=== PATIENT | male | born 1975 | race Caucasian/White ===

== ENCOUNTER → 2018-09-06 15:20 | Outpatient (CLI) | payer BC | END | disposition home or self-care (01) | LOC: D.MRI 15:20 | DX: M54.16 Radiculopathy, lumbar region (principal) ==

== ENCOUNTER → 2018-11-27 14:14 | Outpatient (CLI) | payer BC ==
[~2018-11-27 14:14] MED LIST: GABAPENTIN100 MG PO; OXYCONTIN15 MG PO; VOLTAREN75 MG PO
== END | disposition home or self-care (01) ==
LOC: D.MRI 14:14
PROVIDERS: ATTEND Anesthesiology
DX: M54.5 Low back pain (principal); M54.6 Pain in thoracic spine

== ENCOUNTER 2018-12-14 15:29 | Emergency (ER) | payer BC ==
[2018-12-14 15:48] VITALS: BMI 33.2
[2018-12-14] MEDS ORDERED: OXYCONTIN15 MG PO (15:51)
[2018-12-14] MEDS ORDERED: VOLTAREN75 MG PO (16:59)
[2018-12-14] MEDS ORDERED: GABAPENTIN100 MG PO (16:59)
[2018-12-14 17:48] VITALS: BP 142/84
== END 2018-12-14 17:48 | disposition home or self-care (01) ==
LOC: D.ER 15:29
DX: M54.16 Radiculopathy, lumbar region (principal); M51.26 Other intervertebral disc displacement, lumbar region; G89.29 Other chronic pain

== ENCOUNTER 2019-08-25 12:51 | Inpatient (IN) | payer MEDICARE ==
[~2019-08-25] VITALS: Ht 180.3 cm; Wt 104.1 kg
--- NOTE | 2019-08-25 11:25 | NUR ---
BLOOD TRANSFUSION CONSENT SIGNED BY PT. FIRST UNIT OF PR[facility] STARTED IN RIGHTINNER FOREARM. THAT SITE STARTED LEAKING AND WAS DC'D WITH CATH TIP INTACT. RESTARTED IN LEFT AC WITH 20G X 1 ATTEMPT AND BLOOD NOW INFUSING WELL. B/P RUNNING HIGH AND CONTACTED MIESHA RAMON APRN AND ORDERS RECEIVED. CLONIDINE 0.1 MG GIVEN PO.
[2019-08-25] MEDS ORDERED: ZANAFLEX4 MG PO (13:15)
[2019-08-25] MEDS ORDERED: ZANAFLEX6 MG PO (13:16)
[2019-08-25] MEDS ORDERED: VALIUM5 MG PO (13:17)
[2019-08-25 13:41] LABS: BASOPHILS 0.3 % (0-2); EOSINOPHILS 2.1 % (0-7); HEMATOCRIT 45.7 % (42.0-54.0); HEMOGLOBIN 15.5 g/dL (13.5-17.5); IMMATURE GRANULOCYTES 0.3 % (0-5); LYMPHOCYTES 31.7 % (15-50); MCH 32.1 pg (26.0-34.0); MCHC 33.9 g/dL (31.0-37.0); MCV 94.6 fL (80.0-100.0); MEAN PLATELET VOLUME 9.2 fL (7.4-10.4); MONOCYTES 6.9 % (2-11); NEUTROPHILS 58.7 % (40-80); PLATELET COUNT 273 10x3/uL (130-400); RBC 4.83 10x6/uL (4.20-6.10); RDW 13.7 % (11.5-14.5); WBC 8.6 10x3/uL (4.8-10.8)
[2019-08-25 13:59] LABS: CALC OSMOLALITY 285 mosm/kg (275-300); CARBON DIOXIDE 24.2 mmol/L (21.0-32.0); CHLORIDE - SERUM 105 mmol/L (98-107); CREATININE - SERUM 1.1 mg/dL (0.6-1.3); GLUCOSE 175 mg/dL (74-106); POTASSIUM - SERUM 4.3 mmol/L (3.5-5.1); SODIUM 141 mmol/L (136-145); UREA NITROGEN 15 mg/dL (7-18); eGFR NON AFRICAN AMERICAN 77 mL/min (90-120)
[2019-08-25 14:04] LABS: ALBUMIN 3.8 g/dL (3.4-5.0); ALKALINE PHOSPHATASE 74 U/L (46-116); ALT (SGPT) 33 U/L (10-68); BILIRUBIN - TOTAL 0.24 mg/dL (0.2-1.3); PROTEIN - SERUM 6.8 g/dL (6.4-8.2)
[2019-08-25 14:42] LABS: CKMB 1.8 U/L (0.0-3.6); CREATINE KINASE 185 UL (21-232)
[2019-08-25 15:17] VITALS: BMI 25.0
--- NOTE | 2019-08-25 15:30 | NUR ---
ASSESSMENT COMPLETE AAOX4 RESP UNLABORED SKIN W/D COLOR WNL TELEMETRY SR RATE 72 C/O OF CHEST PRESSURE PAGE IN TO MD FOR PAIN MANAGEMENT WILL CONTINUE TO MONITOR
[2019-08-25 16:00] VITALS: BP 128/76
[2019-08-25 16:36] VITALS: Ht 180.3 cm; Wt 104.1 kg
[2019-08-25 17:15] LABS: INR 0.9 (0.85-1.17); PROTIME 11.7 SECONDS (11.6-15.0)
[2019-08-25 20:05] LABS: CKMB 1.5 U/L (0.0-3.6); CREATINE KINASE 157 UL (21-232); TROPONIN-I < 0.017 ng/mL (0.000-0.060)
[2019-08-25 20:41] VITALS: BP 138/82
[2019-08-26 00:35] VITALS: BP 123/61
[2019-08-26 02:33] LABS: CKMB 1.2 U/L (0.0-3.6); CREATINE KINASE 132 UL (21-232); TROPONIN-I < 0.017 ng/mL (0.000-0.060)
[2019-08-26 04:00] VITALS: BP 103/58
[2019-08-26 04:54] LABS: BASOPHILS 0.5 % (0-2); EOSINOPHILS 2.2 % (0-7); HEMATOCRIT 46.3 % (42.0-54.0); HEMOGLOBIN 15.5 g/dL (13.5-17.5); IMMATURE GRANULOCYTES 0.2 % (0-5); LYMPHOCYTES 31.8 % (15-50); MCH 32.2 pg (26.0-34.0); MCHC 33.5 g/dL (31.0-37.0); MCV 96.3 fL (80.0-100.0); MEAN PLATELET VOLUME 9.2 fL (7.4-10.4); MONOCYTES 10.8 % (2-11); NEUTROPHILS 54.5 % (40-80); PLATELET COUNT 282 10x3/uL (130-400); RBC 4.81 10x6/uL (4.20-6.10); RDW 13.8 % (11.5-14.5); WBC 8.6 10x3/uL (4.8-10.8)
[2019-08-26 05:07] LABS: CALC OSMOLALITY 285 mosm/kg (275-300); CALCIUM 8.4 mg/dL (8.5-10.1); CARBON DIOXIDE 25.9 mmol/L (21.0-32.0); CHLORIDE - SERUM 107 mmol/L (98-107); CREATININE - SERUM 1.1 mg/dL (0.6-1.3); POTASSIUM - SERUM 4.7 mmol/L (3.5-5.1); SODIUM 142 mmol/L (136-145); UREA NITROGEN 18 mg/dL (7-18); eGFR NON AFRICAN AMERICAN 77 mL/min (90-120)
[2019-08-26 05:10] LABS: GLUCOSE 109 mg/dL (74-106)
--- NOTE | 2019-08-26 07:20 | NUR ---
ASSESSMENT DONE. DENIES NEEDS
[2019-08-26 11:01] VITALS: BP 121/72
--- NOTE | 2019-08-26 11:21 | NUR ---
I have reviewed this patient and I concur with the Shift Assessment completed by the Licensed Practical Nurse today this shift.
[2019-08-26 20:00] VITALS: BP 137/79
[2019-08-27] VITALS: BP 101/51
[2019-08-27 05:03] VITALS: BP 119/70
[2019-08-27 07:22] LABS: BASOPHILS 0.3 % (0-2); EOSINOPHILS 2.1 % (0-7); HEMATOCRIT 46.2 % (42.0-54.0); HEMOGLOBIN 15.3 g/dL (13.5-17.5); IMMATURE GRANULOCYTES 0.2 % (0-5); MCH 31.9 pg (26.0-34.0); MCHC 33.1 g/dL (31.0-37.0); MCV 96.5 fL (80.0-100.0); MEAN PLATELET VOLUME 9.3 fL (7.4-10.4); MONOCYTES 9.4 % (2-11); PLATELET COUNT 272 10x3/uL (130-400); RBC 4.79 10x6/uL (4.20-6.10); RDW 13.6 % (11.5-14.5); WBC 8.7 10x3/uL (4.8-10.8)
[2019-08-27 07:46] LABS: CALC OSMOLALITY 281 mosm/kg (275-300); CARBON DIOXIDE 26.4 mmol/L (21.0-32.0); CHLORIDE - SERUM 106 mmol/L (98-107); GLUCOSE 112 mg/dL (74-106); MAGNESIUM - SERUM 2.1 mg/dL (1.8-2.4); POTASSIUM - SERUM 4.5 mmol/L (3.5-5.1); SODIUM 141 mmol/L (136-145); UREA NITROGEN 13 mg/dL (7-18); eGFR NON AFRICAN AMERICAN 86 mL/min (90-120)
[2019-08-27 08:00] VITALS: BP 138/90
[2019-08-27 12:23] VITALS: BP 134/73
--- NOTE | 2019-08-27 13:10 | NUR ---
WHEN QUESTIONED IF TONY WOULD LIKE A FLU SHOT UPON DISCHARGE, HE REFUSED. Phoebe ORTEGA, PACKING LINE OPERATOR IN ROOM ALSO AT THIS TIME.
--- NOTE | 2019-08-27 14:28 | NUR ---
IV AND TELEMETRY DCD. DC PLANS GIVEN. UNDERSTANDING VOICED.
--- NOTE | 2019-08-27 17:19 | MORECARE ---
CASE MANAGEMENT DISCHARGE SUMMARY PATIENT: DUYEN RM UNIT: [id number] ADM DATE: 08/25/19 AGE: 44 : 73 SEX: M ROOM/BED: D.0880 AUTHOR: RITA,DOC PHYSICIAN: REFERRING PHYSICIAN: SYLVIE SOLER DO DATE OF SERVICE: 08/27/19 Discharge Plan Patient Name: DUYEN RM Facility: [facility]:[place] : 1975 Planned Disposition: Home Anticipated Discharge Date: 08/27/19 Discharge Date: 08/27/2019 Expected LOS: 2 Initial Reviewer: [email or web address] Initial Review Date: 08/27/2019 Generated: 08/27/19 6:19 pm Comments DCP- Discharge Planning Updated by [email or web address]: Omar Sanders on 08/27/19 4:[address] Patient Name: DUYEN RM Admission Status: Urgent Accout number: [id number] Admission Date: 08-25-2019 : 1975 Admission Diagnosis: Attending: SYLVIE SOLER Current LOS: 2 Anticipated DC Date: 08-27-2019 Planned Disposition: Home Primary Insurance: [employer] [facility] Discharge Planning Comments: CM MET WITH PT IN ROOM TO DISCUSS DISCHARGE PLANNING AND NEEDS. PT REPORTS LIVING AT HOME INDEPENDENTLY AND ALONE. PT HAS NO MEDICAL EQUIPMENT AND NO OUTSIDE SERVICES ASSISTING IN THE HOME. CM DISCUSSED AVAILABILITY OF HOME HEALTH, REHAB SERVICES AND MEDICAL EQUIPMENT. PT DENIES DISCHARGE NEEDS, REPORTS HIS FRIEND WILL PICK HIM UP FOR DISCHARGE HOME. IMPORTANT MESSAGE FROM MEDICARE PROVIDED AND EXPLAINED. Door Manager: Omar Sanders DCPIA - Discharge Planning Initial Assessment Updated by [email or web address]: Omar Sanders on 08/27/19 5:14 pm * Is the patient Alert and Oriented? Yes * How many steps to enter\exit or inside your home? * PCP DR. SOLER * Pharmacy [facility] * Preadmission Environment Home Alone * ADLs Independent * Equipment None * Other Equipment NO MEDICAL EQUIPMENT PROVIDER PREFERENCE * List name and contact numbers for known caregivers / representatives who currently or will assist patient after discharge: ROSA RAJAN, FRIEND, * Verbal permission to speak to the caregivers and representatives has been obtained from the patient. N/A * Community resources currently utilized None * Please name any agencies selected above. NONE * Additional services required to return to the preadmission environment? No * Can the patient safely return to the preadmission environment? Yes * Has this patient been hospitalized within the prior 30 days at any hospital? 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
== END 2019-08-27 14:29 | disposition home or self-care (01) | DRG 311 ==
LOC: D.M2 12:51
PROVIDERS: Family Medicine; ADMIT Family Medicine; ATTEND Family Medicine
DX: I20.0 Unstable angina (principal); F17.213 Nicotine dependence, cigarettes, with withdrawal; I10 Essential (primary) hypertension; G89.29 Other chronic pain; M54.9 Dorsalgia, unspecified; E11.65 Type 2 diabetes mellitus with hyperglycemia; R06.00 Dyspnea, unspecified